=== PATIENT | female | born 1935 | race Caucasian/White ===

== ENCOUNTER 2017-07-26 03:38 | Inpatient (IN) | payer OTHER ==
--- NOTE | 2017-07-26 03:47 | CPEKG ---
Heart Rate: 58 RR Interval: 1034 P-R Interval: 160 QRSD Interval: 76 QT Interval: 436 QTC Interval: 429 P Isabella: 38 QRS Isabella: -15 T Wave Isabella: 98 EKG Severity - ABNORMAL ECG - EKG Impression: SINUS RHYTHM EKG Impression: ATRIAL PREMATURE COMPLEX EKG Impression: LEFT VENTRICULAR HYPERTROPHY EKG Impression: ANTERIOR Q WAVES, POSSIBLY DUE TO LVH Electronically Signed By: Jeffrey Hay 26-Jul-2017 05:58:17
--- NOTE | 2017-07-26 04:21 | EDPHY ---
H & P Stated Complaint: cp Time Seen by Provider: 07/26/17 03:38 HPI/ROS: Chief Complaint: Chest pain HPI: 82-year-old woman with a history of coronary artery disease. She woke this morning at 2:30 a.m. With substernal chest pain 7/10 with associated shortness of breath. She had a quadruple bypass in 2000. Last year she had a catheterization which showed a blockage of 1 of her bypass grafts. It was deemed non treatable at that time and she has continue medical management. She also has a history of metastatic breast cancer and has just decided to discontinue treatment. She or last chemotherapy was 3 weeks ago. She is visiting family from [place]. She says over the last several months she has been having episodes of shortness of breath the middle the night which go away when she sits up the side of the bed. She has never had pain associated with them. She did take 325 mg of aspirin at 10 o'clock tonight. She did take nitroglycerin this morning but feels that it may have been . On EMS arrival the patient was very uncomfortable appearing. They gave her an additional nitroglycerin. Her pain is now down to a 4/10. Is described as a tightness in her central chest with aching radiation of both her arms. Family did take her off the [facility] 2 days ago. She has been having worsening exertional dyspnea as well. No fevers or chills. Some mild cough. ROS: 10 point Review of Systems is negative except as noted in the HPI. PMH: Coronary artery disease status post coronary artery bypass graft x4, breast cancer, hyperlipidemia, hypertension, diabetes Social History: No smoking, no alcohol, no recreational drug use Family History: Coronary artery disease Physical Exam: Gen: Awake, Alert, uncomfortable appearing HEENT: Nose: no rhinorrhea Eyes: PERRLA, EOMI Mouth: Moist mucosa Neck: Supple, no JVD Chest: nontender, bibasilar rales Heart: S1, S2 normal, 2 in 6 murmur Abd: Soft, non-tender, no guarding Back: no CVA tenderness, no midline tenderness Ext: no edema, non-tender Skin: no rash Neuro: CN II-XII intact, Sensation grossly intact, Strength 5/5 in bilateral upper and lower extremities - Personal History Current Tetanus Diphtheria and Acellular Pertussis (TDAP): Yes - Medical/Surgical History Hx Asthma: No Hx Chronic Respiratory Disease: No Hx Diabetes: Yes Hx Cardiac Disease: Yes Hx Renal Disease: No Hx Cirrhosis: No Hx Alcoholism: No Hx HIV/AIDS: No Hx Splenectomy or Spleen Trauma: No - Social History Smoking Status: Never smoked Constitutional: Initial Vital Signs Temperature (C) 36.3 C 07/26/17 03:54 Heart Rate 63 07/26/17 03:54 Respiratory Rate 20 07/26/17 03:54 Blood Pressure 163/67 H 07/26/17 03:54 O2 Sat (%) 97 07/26/17 03:54 O2 Delivery Mode Nasal Cannula O2 (L/minute) 1 Allergies/Adverse Reactions: levofloxacin [From Levaquin] Allergy (Severe, Verified 07/26/17 03:52) clopidogrel [From Plavix] Allergy (Verified 07/26/17 03:59) diphenhydramine [From Benadryl] Allergy (Verified 07/26/17 03:58) morphine Allergy (Verified 07/26/17 03:53) Penicillins Allergy (Verified 07/26/17 03:59) Home Medications: Medication Instructions Recorded Adult Aspirin 07/26/17 Atenolol 07/26/17 Atorvastatin Calcium [Lipitor 10 07/26/17 mg (*)] Furosemide 07/26/17 Humalog 07/26/17 Isosorbide Dinitrate 10 mg (*) 07/26/17 Metformin 1000 mg 07/26/17 Omeprazole 07/26/17 Zestril 20 mg (*) 07/26/17 Medical Decision Making - Diagnostics EKG Interpretation: ECG time 3:45 a.m., sinus rhythm with a rate of 58, there is 1 mm elevations in AVR with 1 mm depressions in V5 and V6. Neuro is also depressions in leads 1 and 2. There are no prior ECGs available for comparison. ECG time 5:03 a.m., sinus rhythm, [address] elevations in AVR with ST depressions in V5 and V6 and lead 1, unchanged from prior. Imaging Results: Chest x-ray shows no acute disease per my interpretation. Imaging: I viewed and interpreted images myself ED Course/Re-evaluation: 82-year-old woman with known coronary disease presenting with substernal chest pain shortness of breath. ECG shows some mild ST elevations in AVR with depressions in feet 5 in V6. I have discussed with Dr. Artie Costa, cardiology. He has reviewed her ECG. 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 She could have some proximal LAD lesion. He is requesting patient be admitted medicine service. Will repeat an ECG and troponin 1 hr after the initial. If there is significant changes he would like to be contacted. I have discussed with Dr. Bautista, hospitalist. He will admit to the his service for further evaluation. Patient is still having some to have chest discomfort. She is refusing any narcotic pain medication at this time. 0530 repeat ECG is unchanged from prior, repeat troponin is 0.03. - Data Points Laboratory Results: Laboratory Results 07/26/17 03:30 07/26/17 07/26/17 03:50 03:30 Sodium 143 mEq/L mEq/L (135-145) Potassium 4.9 mEq/L mEq/L (3.3-5.0) Chloride 103 mEq/L mEq/L (97-110) Carbon Dioxide 25 mEq/l mEq/l (22-31) Anion Gap 15 mEq/L mEq/L (8-16) BUN 37 mg/dL H mg/dL (7-23) Creatinine 1.4 mg/dL H mg/dL (0.6-1.0) Estimated GFR 36 Glucose 206 mg/dL H mg/dL (70-100) Calcium 8.6 mg/dL mg/dL (8.5-10.4) Total Bilirubin 0.4 mg/dL mg/dL (0.1-1.4) AST 18 IU/L IU/L (14-46) ALT 27 IU/L IU/L (9-52) Alkaline Phosphatase 118 IU/L IU/L (38-126) POC Troponin I 0.02 ng/mL ng/mL (0.00-0.08) Total Protein 6.4 g/dL g/dL (6.3-8.2) Albumin 3.4 g/dL L g/dL (3.5-5.0) Point of Care Test Results: Chemistry 07/26/17 03:50 POC Troponin I 0.02 ng/mL ng/mL (0.00-0.08) Departure - Departure Disposition: [facility] Inpatient Acute Clinical Impression: Chest pain Condition: Fair
[2017-07-26] MEDS ORDERED: IBUPROFEN 200 MG TAB PO ONE (04:50)
[2017-07-26] MEDS ORDERED: ONDANSETRON DISINTEGRATING 4 MG TAB PO PRN (04:59)
[2017-07-26] MEDS ORDERED: ONDANSETRON 4 MG/2 ML VIAL IVP PRN (04:59)
--- NOTE | 2017-07-26 05:06 | CPEKG ---
Heart Rate: 71 RR Interval: 845 P-R Interval: 176 QRSD Interval: 80 QT Interval: 420 QTC Interval: 457 P [place]: 39 QRS [place]: -14 T Wave [place]: 92 EKG Severity - ABNORMAL ECG - EKG Impression: SINUS RHYTHM EKG Impression: LVH WITH SECONDARY REPOLARIZATION ABNORMALITY EKG Impression: ANTERIOR Q WAVES, POSSIBLY DUE TO LVH Electronically Signed By: Jeffrey Hay 26-Jul-2017 05:58:17
[2017-07-26] MEDS: ACETAMINOPHEN 325 MG TAB PO PRN ×2 (05:56→17:54)
--- NOTE | 2017-07-26 06:04 | PDGENHP ---
History and Physical - Chief Complaint Chest pain - History of Present Illness 82 yo F w/ hx of CAD and breast CA p/w chest pain. Patient woke up around 2 AM with severe, substernal chest pressure that radiated to her arms. This was associated with shortness of breath. She called EMS and was given NTG with little relief. In the ED her troponin has been negative. Her ECG does show some ischemic changes. Dr. Costa of cardiology was called who opted for conservative management. At the time of my evaluation patient is chest pain free and in NSR. Of note, she was [place] cardiac [place] and was told she had a blocked graft but this was not addressed due to goals of care. History Information - Allergies/Home Medication List Allergies/Adverse Reactions: levofloxacin [From Levaquin] Allergy (Severe, Verified 07/26/17 03:52) clopidogrel [From Plavix] Allergy (Verified 07/26/17 03:59) diphenhydramine [From Benadryl] Allergy (Verified 07/26/17 03:58) morphine Allergy (Verified 07/26/17 03:53) Penicillins Allergy (Verified 07/26/17 03:59) Home Medications: Adult Aspirin 07/26/17 [Last Taken Unknown] Atenolol 07/26/17 [Last Taken Unknown] Atorvastatin Calcium [Lipitor 10 mg (*)] 07/26/17 [Last Taken Unknown] Furosemide 07/26/17 [Last Taken Unknown] Humalog 07/26/17 [Last Taken Unknown] Isosorbide Dinitrate 10 mg (*) 07/26/17 [Last Taken Unknown] Metformin 1000 mg 07/26/17 [Last Taken Unknown] Omeprazole 07/26/17 [Last Taken Unknown] Zestril 20 mg (*) 07/26/17 [Last Taken Unknown] I have personally reviewed and updated: family history, medical history - Past Medical History coronary artery disease, cancer - Surgical History Reports: coronary bypass surgery - Family History Additional family history: Adult daughter healthy in the room - Social History Smoking Status: Never smoked Review of Systems Review of Systems: ROS: 10pt was reviewed & negative except for what was stated in HPI & below Physical Exam Physical Exam: Temp Pulse Resp BP Pulse Ox 36.3 C 67 18 140/81 H 97 07/26/17 03:54 07/26/17 04:58 07/26/17 04:58 07/26/17 04:58 07/26/17 04:58 Constitutional: no apparent distress, not in pain Eyes: PERRL, EOMI Ears, Nose, Mouth, Throat: moist mucous membranes, no oral mucosal ulcers Cardiovascular: regular rate and rhythym, systolic murmur Respiratory: no respiratory distress, clear to auscultation Gastrointestinal: normoactive bowel sounds, soft, non-tender abdomen Skin: warm, normal color, other (Port RU chest) Musculoskeletal: full muscle strength, no muscle tenderness Neurologic: AAOx3, CN II-XII Intact Psychiatric: interacting appropriately, not anxious Lab Data & Imaging Review 07/26/17 03:30 Sodium 143 mEq/L (135-145) 07/26/17 03:30 Potassium 4.9 mEq/L (3.3-5.0) 07/26/17 03:30 Chloride 103 mEq/L (97-110) 07/26/17 03:30 Carbon Dioxide 25 mEq/l (22-31) 07/26/17 03:30 Anion Gap 15 mEq/L (8-16) 07/26/17 03:30 BUN 37 mg/dL (7-23) H 07/26/17 03:30 Creatinine 1.4 mg/dL (0.6-1.0) H 07/26/17 03:30 Estimated GFR 36 07/26/17 03:30 Glucose 206 mg/dL (70-100) H 07/26/17 03:30 Calcium 8.6 mg/dL (8.5-10.4) 07/26/17 03:30 Total Bilirubin 0.4 mg/dL (0.1-1.4) 07/26/17 03:30 AST 18 IU/L (14-46) 07/26/17 03:30 ALT 27 IU/L (9-52) 07/26/17 03:30 Alkaline Phosphatase 118 IU/L (38-126) 07/26/17 03:30 POC Troponin I 0.03 ng/mL (0.00-0.08) 07/26/17 05:17 Total Protein 6.4 g/dL (6.3-8.2) 07/26/17 03:30 Albumin 3.4 g/dL (3.5-5.0) L 07/26/17 03:30 Visualized and Interpreted Chest x-ray results: Yes Chest X-Ray results: no infiltrate, other (Port in place, sternotomy wires noted ) Visualized and Interpreted EKG results: Yes EKG Interpretation: Positive for: normal sinsus rhythm, ST elevation (AVR, V1), ST depression (V4-V6) Assessment & Plan Assessment: 82 yo F w/ CAD and breast CA p/w chest pain. Plan: 1. Chest pain - Concerning story noting severe substernal chest pain with radiation to bilateral arms. ECG notable for 1 mm LINDA's in AVR and V1. Troponin negative thus far. - Admit to PCU for observation - Monitor on telemetry, trend cardiac enzymes (next at 1100) - Cardiology notified, will see patient today - Discussed goals of care with patient, she is unsure if she would want intervention and would like to know the results of the work-up and the risk she is in prior to making a decision about invasive measures 2. CAD - S/p CABG in 2000. Per patient and daughter she was told that she had a blocked graft during a cath last year that was not intervened upon. - Acute work-up as above - Continue ASA, statin 3. Breast CA - Patient recently made the decision to stop chemotherapy. Diet - NPO Code - Full Ppx - SQH Dispo - Admit under observation status
[2017-07-26] MEDS: HEPARIN 5,000 UNIT/0.5 ML INJ SC SCH ×2 (08:25→16:51)
[2017-07-26 10:33] LABS: PLATELET COUNT 231 10^3/uL (150-400)
[2017-07-26] MEDS ORDERED: ISOSORBIDE MONONITRATE 30 MG TAB.SR PO SCH (10:45)
[2017-07-26 10:46] LABS: INR 0.99 (0.83-1.16); PROTIME(PATIENT) 13.3 SEC (12.0-15.0)
--- NOTE | 2017-07-26 12:09 | GCON ---
[f rep st] CONSULTATION CARDIOLOGY CONSULTATION. REFERRING PHYSICIAN: Nick Mckeon MD INDICATION FOR CARDIOLOGY CONSULTATION: Known history of CAD, chest pressure, abnormal electrocardiogram. HISTORY OF PRESENT ILLNESS: The patient is an 82-year-old female with significant past history that includes CAD with previous CABG in 2000, hypertension, hyperlipidemia, history of left-sided breast cancer who has recently stopped chemotherapy, insulin-dependent diabetes. She is here in [place] on vacation with her family. She reports last evening, around 2:00 a.m. , waking up with significant shortness of breath. Once sitting up, she developed a full anterior chest pressure, rating it 5/10 with intense pain. She did report some mild diaphoresis and had nausea with symptoms. Her daughter did give her 2 sublingual nitroglycerin and called 911. Patient reports no relief with symptoms. Once EMS arrived, repeated dosage of sublingual nitroglycerin was given. Her initial electrocardiogram showed sinus arrhythmia, leftward axis, noted sub millimeter ST elevation in V1, Q-waves in V1 and V2, with nonspecific T-wave abnormalities in lateral leads. In the emergency department, her chest pressure went away. Initial troponin level drawn was 0.02. She was admitted to the PCU for further evaluation. She informs me since being on the PCU, her shortness of breath has improved, but she did notice a mild episode of midsternal similar pressure while getting up and going to the bathroom, which dissipated within a few minutes of rest. She does inform me over the last 2 months, she has been noticing more dyspnea on exertion, but has had no chest pressure. She does report on average for the last 2 months of usually waking up with PND at least 3 times a week. She reports no recent fevers chills or night sweats. With her history of breast cancer, she reports her last dose of chemotherapy was 3 weeks ago. She has also been noted to have an abnormal stress test last May, in which she did undergo coronary angiogram in [place] by her primary endocrinology teacher, Dr. Dickerson , in which it was noted that she had a normal LV systolic function , her left main had a 90% lesion, her circumflex was occluded, her RCA was occluded. She had a PEARSON to the LAD that was open. She had an SVG to diagonal and skip graft to OM which was open but her SVG to her RCA was occluded. It was, at that time , decided to treat her with medical therapy. She has significant cardiac risk factors that include age, hypertension, hyperlipidemia, family history of coronary artery disease, reporting mother of CAD, and diabetes. PAST MEDICAL HISTORY: Includes breast cancer, history of colon cancer, diabetes , CAD, hypertension, hyperlipidemia. PAST SURGICAL HISTORY: Includes CABG in 2000, appendectomy, left mastectomy, removal of gallbladder, total hysterectomy. SOCIAL HISTORY: She has been for 61 years. She has 4 adult daughters whom she reports are alive and well, but do have history of either hypertension and diabetes. She denies of any history of smoking, reports no alcohol use, denies any illicit drug use. ALLERGIES: Reported allergies of clopidogrel, Benadryl, Levaquin, morphine and penicillin. HOME MEDICATIONS: Include Humalog Mix 75/25, 20 units subQ daily, vitamin C 00 mg p.o. daily, Lasix 20 mg p.o. daily, vitamin D2 5000 units p.o. every Monday, Lipitor 80 mg p.o. h.s., atenolol 25 mg p.o. daily, aspirin 325 mg p.o. h.s., metformin a 1000 mg p.o. b.i.d., omeprazole 20 mg p.o. h.s. isosorbide 30 mg p.o. daily, lisinopril 20 mg p.o. h.s. REVIEW OF SYSTEMS: A 10-point review of systems done on this patient all negative except as mentioned above. PHYSICAL EXAMINATION: GENERAL APPEARANCE: Elderly female, mildly obese, , appears to be in no acute distress. Alert and oriented to person, place, time, situation. VITAL SIGNS: Blood pressure of 175/83, heart rate 75 sinus rhythm on the monitor, respirations are 17, saturating 93% on room air, temperature of 36.3 degrees Celsius. HEENT: Head is normocephalic. Lips and tongue are pink and moist with no signs of cyanosis. Conjunctivae pink. NECK: Trachea is midline. +2 carotid pulses bilateral, no auscultated bruits, jugular vein elevation of 5-6 cm above sternal notch at a 45-degree angle. LUNGS: Mild rales noted in bases bilateral, no rhonchi or wheezing noted. No accessory muscle use, no intercostal muscle retraction noted. CARDIAC: Regular rate, regular rhythm, S1, S2, 2/6 systolic murmur noted along left sternal border. No rubs noted. ABDOMEN: Soft, nontender, bowel sounds x4 quadrants, no organomegaly, no palpable masses. SKIN: [place], warm, dry, no cyanosis, +1 to 2 peripheral edema bilateral lower extremities. VASCULAR: +2 carotids bilateral, +2 radials bilateral, +1 dorsal pedal and posterior tibial pulses bilateral. LABORATORIES: Laboratory studies drawn on admission showed sodium of 143, potassium 4.9, chloride 103, CO2 25, BUN 37, creatinine 1.4, glucose 206 calcium 8.6, total bilirubin 0.4, AST 18, ALT 27, alkaline phosphate 118, initial troponin of 0.02. Total protein 6.4, albumin 3.4. This morning, WBC was 12.4, hemoglobin of 11.6, hematocrit 36.1, platelet count 231. INR of 0.99 , currently pending is 3rd troponin level and BNP. STUDIES: Electrocardiogram as mentioned above. Chest x-ray, showing cardiomegaly with no acute cardiopulmonary process. ASSESSMENT AND PLAN: 1. Chest pressure: The patient reporting new onset of chest pressure this morning, waking her up from sleep with associated symptoms of shortness of breath, nausea and diaphoresis. She has had 2 negative troponins so far. She is noted to have history of coronary artery disease with previous bypass surgery , last catheterization was done May 2016, by her primary endocrinology teacher. At that time, she was noted that saphenous vein graft to right coronary artery was 100% occluded with the thoughts of treatment for medical therapy. She reports ongoing paroxysmal nocturnal dyspnea for the last 2 months. She is currently pain-free, but did report earlier this morning after arrival to the hospital exertional chest pain when getting up to the bathroom which resolved within a few minutes. At this time, I am concerned with her multiple cardiac risk factors, significant cardiac history, and ongoing symptoms that potentially is experiencing acute coronary syndrome. We will repeat troponin level now. She has had an aspirin therapy in the ER this morning. I will resume her home dose of beta-lilia. I would like her to get an echocardiogram to evaluate her LV systolic function, and I have discussed with the patient and daughter about consideration repeat angiogram. 2. Coronary artery disease: Patient with known history of coronary artery disease. She is currently on anti-platelet therapy of aspirin, had resumed her home doses of atenolol and isosorbide. She is on secondary prevention with atorvastatin. 3. Dyspnea on exertion: Patient reporting ongoing dyspnea on exertion for the last few months. Chest x-ray showing no acute cardiopulmonary process, does note elevated jugular venous distention and mild rales on physical examination. Will have ordered a BMP to be done. The patient is currently off her diuretic dose. I would like to hold off until we have decided on if she will go for angiogram due to her elevated creatinine. Echocardiogram as above. 4. Hypertension: Patient's blood pressure is elevated today, I have resumed her home dosage of atenolol, isosorbide, and lisinopril. Will re-evaluate once she has received her morning medications and determine if any further needs. 5. Hyperlipidemia: Patient with history hyperlipidemia. She has been resumed on her home dose of atorvastatin. 6. Diabetes: Patient with history of type 1 diabetes. She is being followed by the hospitalist services for medication control. 7. Breast cancer: The patient reports history of metastatic breast cancer with previous mastectomy to the left. She reports most recent chemotherapy was 3 weeks ago. Echocardiogram to evaluate left ventricular function due to history of recent history of chemotherapy. Thank you for this consultation. We will be glad to follow along with you. /[id number]/MODL MTDD
[2017-07-26] MEDS: ATENOLOL 25 MG TAB PO SCH (12:17)
[2017-07-26] MEDS ORDERED: NITROGLYCERIN 0.4 MG BTL SL PRN (12:19)
[2017-07-26] MEDS ORDERED: ASPIRIN EC 325 MG TAB PO ONE ×2 (12:19→14:32)
[2017-07-26] MEDS ORDERED: FAMOTIDINE 20 MG TAB PO ONE (12:19)
[2017-07-26] MEDS ORDERED: DIAZEPAM 5 MG TAB PO ONE (12:19)
[2017-07-26] MEDS ORDERED: TEMAZEPAM 15 MG CAP PO PRN (12:19)
[2017-07-26] MEDS ORDERED: NS 1,000 ML IV SCH (12:30)
--- NOTE | 2017-07-26 12:48 | ECHO ---
[email or web address] [address] [address] Main: [phone] Fax: Transthoracic Echocardiogram Name: MARY EARLY MR#: [id number] Study Date: 07/26/2017 Study Time: 10:20 AM Date of : 1935 Age: 82 year(s) Height: 157.5 cm (62 in.) Weight: 78.02 kg (172 lb.) BSA: 1.79 m2 Gender: Female Examination: Echo Indication: cp, Coronary artery disease, Shortness of breath Image Quality: Adequate Contrast: Requested by: Bharat Fitch BP: 140 mmHg/81 mmHg Heart Rate: Rhythm: Indication: cp, Coronary artery disease, Shortness of breath Procedure Staff French Folder: Tammy Courtney RDCS Reading Physician: Alonzo Childress MD Requesting Provider: Conclusions: Normal global systolic LV function. EF is 64 %. Mild to moderate mitral regurgitation. Mild aortic valve regurgitation is present. Mild tricuspid regurgitation is present. Right ventricular systolic pressure measures 32mmHg. Measurements: Chambers Valvular Assessment AV/MV Valvular Assessment TV/PV Normal Normal Normal Name Value Range Name Value Range Name Value Range Ao Kaleigh (2D): 3.1 cm (1.4 cm-2.6 AV Vmax: 1.10 m/s (1 m/s-1.7 TR Vmax: 2.59 mm/s ( - ) cm) m/s) TR PGmax: 27 mmHg ( - ) IVSd (2D): 1.2 cm (0.6 cm-1.1 AV meanP mmHg ( - ) syst. PAP: 32 mmHg ( - ) cm) BO (VTI): 2.3 cm ( - ) PV Vmax: 0.94 m/s (0.6 m/s-0.9 LVDd (2D): 3.8 cm (3.9 cm-5.3 MV E Vmax: 0.88 m/s ( - ) m/s) cm) MV A Vmax: 1.31 m/s ( - ) PV PGmax: 4 mmHg ( - ) LVDs (2D): 2.5 cm (2.1 cm-4 MV E/A: 0.67 ( - ) cm) MV meanP mmHg ( - ) LVPWd (2D): 1.2 cm ( - ) MV PHT: 0.131 s ( - ) LVOTd 2.1 cm 2.1 cm mm MVA (Vmax): 1.2 m/s ( - ) LVEF (BP): 64 % (>=55 %) MVA (PHT): 1.7 s ( - ) RVDd(2D): 2.7 cm (1.9 cm-3.8 cmmm) Continued Measurements: Chambers Valvular Assessment AV/MV Valvular Assessment TV/PV Name Value Name Value Name Value Patient: MARY EARLY Study Date: 07/26/2017 Page 1 of 2 10:20 AM LADs: 3.6 cm MV DecTime: 419 m/s CVP (est.): 5 mmHg LADs Lon.0 cm MV E' Septal: 0.04 m/s LA Area: 18.9 cm2 MV E/E' Septal: 23.80 LA Volume: 53 ml MV E/E' Lateral: 17.30 LA Volume Index: 29.6 ml/m2 MV VTI: 49.10 cm RA Area: 13.0 cm2 Additional Vessels Name Value Ao Ascendin.1 cm Findings: Left Ventricle: Normal size left ventricle. No LV hypertrophy. Normal global systolic LV function. EF is 64 %. No regional wall motion abnormality. Diastolic dysfunction is present. . Right Ventricle: Normal size right ventricle. Normal RV function. Left Atrium: The left atrium is normal in size. Right Atrium: The right atrium is normal in size. Mitral Valve: The mitral valve is normal in appearance and function. No mitral stenosis is present. Mild to moderate mitral regurgitation. Mitral valve leaflet calcification is noted. Aortic Valve: The aortic valve is tri-leaflet. Mild aortic valve regurgitation is present. No aortic valve stenosis is present. Tricuspid Valve: The tricuspid valve is normal in appearance and function. Mild tricuspid regurgitation is present. The pulmonary artery pressure is normal. Right ventricular systolic pressure measures 32mmHg. Pulmonic Valve: The pulmonic valve is normal in appearance and function. There is no pulmonic regurgitation seen. Aorta: The aorta is normal. Normal size aortic root measuring 3.1 cm. Normal size ascending aorta measuring 3.1 cm. Pericardium: No pericardial effusion. (No Signature Object) Patient: MARY EARLY Study Date: 07/26/2017 Page 2 of 2 10:20 AM [id number]
[2017-07-26] MEDS ORDERED: LIDOCAINE 1% 300 MG/30 ML SDV ONE (13:39)
[2017-07-26] MEDS ORDERED: IOPAMIDOL (ISOVUE-370) 150 ML BTL IV ONE (13:40)
[2017-07-26] MEDS ORDERED: fentaNYL 100 MCG/2 ML INJ ONE (13:40)
[2017-07-26] MEDS ORDERED: MIDAZOLAM 2 MG/2 ML VIAL ONE (13:40)
[2017-07-26] MEDS ORDERED: diphenhydrAMINE 25 MG CAP PO ONE (14:31)
[2017-07-26] MEDS ORDERED: FAMOTIDINE 20 MG TAB ONE (14:32)
[2017-07-26] MEDS ORDERED: DIAZEPAM 5 MG TAB ONE (14:32)
[2017-07-26] MEDS ORDERED: TICAGRELOR 90 MG TAB ONE (14:51)
--- NOTE | 2017-07-26 14:51 | PDHPUP ---
History & Physical Update H&P update statement: This history and physical update is based on an assessment of the patient which was completed after admission or registration (within 24 hours), but prior to the surgery/procedure. H&P update: H&P reviewed & patient examined, no change in patient's condition since H&P completed
--- NOTE | 2017-07-26 14:51 | PDPROPOC ---
Sedation Plan of Care Sedation Plan of Care: mental status noted, patient educated of risks, benefits , alternatives, patient can tolerate sedation ASA Classification: ASA 2 Planned drugs: fentanyl, midazolam Mallampati Score: Class 2 Mallampati Reference Image: Patient passed 3-3-2 rule?: Yes
[2017-07-26] MEDS ORDERED: TICAGRELOR 90 MG TAB PO ONE (15:00)
[2017-07-26] MEDS ORDERED: hydrALAZINE 20 MG/ML VIAL ONE (15:15)
[2017-07-26] MEDS ORDERED: FUROSEMIDE 40 MG/4 ML VIAL IVP ONE (15:56)
--- NOTE | 2017-07-26 16:40 | ASMTCMCOM ---
CM Note CM Note Notes: 07/26/2017 Case Management Note Discussed pt during rounds this morning. Her daughter was present. Pt admitted for chest pain with a h/o previous heart caths with stents. There are no therapy evals ordered at this time. Case Management d/c poc: to be determined. Case Management to follow. Date Signed: 07/26/2017 04:39 PM Electronically Signed By:Becca Williamson RN
--- NOTE | 2017-07-26 19:11 | CPIP ---
[f rep st] INVASIVE CARDIAC PROCEDURE DATE OF PROCEDURE: 07/26/2017 INDICATIONS FOR PROCEDURE: Lqs-RD-jepcixe elevation myocardial infarction. PROCEDURE: 1. Nonselective right groin sheathogram. 2. Bilateral selective coronary angiography. 3. catheterization. 4. Left angiogram. 5. Saphenous vein angiography jump graft to obtuse marginal artery and diagonal artery. 6. Left internal mammary artery angiography to the left anterior descending. 7. Saphenous vein angiography presumably to right coronary artery which was occluded. This is an 82-year-old female with a history of prior bypass surgery. The patient had come in with c hest pain early this morning and was found to have elevated troponins. Given these findings, patient consented for a left heart catheterization. DESCRIPTION OF PROCEDURE: After informed consent, the patient was brought to [facility]. The right groin w as prepped and draped in usual sterile fashion. Using lidocaine, a short 6-[place] sheath, right femo ral artery verified angiographically with the 6-[place] sheath. The JR4 catheter was advanced to the left coronary artery. The left coronary artery revealed a normal ostial left main. However, in the proximal left main, there was 70% disease. The circumflex was 100% occluded. The LAD itself gave of f a septal labor supervisor in its midportion. Distally had diffuse thin 60% to 70% disease. Of note, the re was competitive filling of the LAD via graft and some collateralization of the distal RPDA coming off this vessel. After these images were obtained, the JL4 catheter was removed. A JR4 catheter was advanced to the right coronary artery which revealed subtotally occluded 100% proximal RCA with some faint reconstitution distally of the vessel from right to right collaterals. After these images were obtained, the JR4 catheter was pulled back into the 1st graft, which was pres umably graft to the RCA. This was 100% occluded. This was then pulled back into the 2nd graft, whic h was a jump graft to the high diagonal artery to a marginal 1 artery. The graft itself appeared to be widely patent. The marginal artery appeared to be widely patent distally. The diagonal artery wa s a smaller vessel which appeared to have a focal 40% to 50% area of narrowing in its mid distal aspe ct, but no high-grade stenosis. After imaging had been obtained, the JR4 catheter was placed in the left subclavian artery, switched out for a PEARSON catheter. Angiography of the left internal mammary a rtery showed widely patent PEARSON anastomosing to an LAD. Distal LAD was widely patent. After these i mages were obtained, the left internal mammary artery catheter was removed. A pigtail catheter was a dvanced to the left ventricle. EDP was 15 mmHg. pressure showed EF of 65% with no large wall motion abnormality. Pigtail catheter was removed with no pullback gradient. The pigtail cathet er was removed . The right groin was closed with a 6-[place] Angio-Seal. The patient ector ated the procedure well with no complications. IMPRESSION: 1. Severe [place] coronary artery disease. 2. Patent left internal mammary artery to LAD and patent saphenous vein graft jump graft to obtuse m arginal 1 and high diagonal artery. 3. 100% occluded right coronary artery with what presumably is an occluded saphenous vein graft to t he right coronary artery. 4. Normal ejection fraction. PLAN: The patient has stable coronary artery disease compared to her last catheterization with the s frankie patent grafts as before. Will continue with aggressive medical therapy. No need for any interve ntion at this point. /[id number]/MODL
[2017-07-26] MEDS: PANTOPRAZOLE SODIUM 40 MG TAB PO SCH (20:37)
[2017-07-26] MEDS: LISINOPRIL 20 MG TAB PO SCH (20:37)
[2017-07-26] MEDS: ATORVASTATIN CALCIUM 40 MG TAB PO SCH (20:37)
[2017-07-26] MEDS: INSULIN LISPRO PROTAMIN SQ SCH (21:05)
[2017-07-26] MEDS: LISPRO SQ SCH (21:05)
[2017-07-27] MEDS: ASPIRIN 325 MG TAB PO SCH ×2 (02:20→20:12)
--- NOTE | 2017-07-27 08:08 | PDCARPN ---
Cardiology Progress Note Chief Complaint: CP Assessment/Plan: Assessment: CP NSTEMI CABG HTN Plan: 07/27/17 08:05 Pt feels better today and wants to go home Certainly altitude has some effect on symptoms will increase imdur and hydralazine for better BP control CRI and bradycardia will limit ACEi and BB titration Check LE venous U/S to r/o DVT as alternate source of symptoms Subjective: feels better Reviewed/Discussed With: multidisciplinary team Time Spent with Patient: greater than 25 minutes Time Spent with Patient: Greater than 25 minutes spent on this patients care, greater than 50% of time spent counseling, educating, and coordinating care regarding the above mentioned plan. Objective: Vital Signs (8 Hrs) Temp Pulse Resp BP Pulse Ox 07/27/17 03:38 36.5 C 62 19 177/79 H 98 Intake/Output (24 Hrs) 07/26/17 07/27/17 07/28/17 05:59 05:59 05:59 Intake Total 50 100 Output Total 300 Balance 50 -200 Intake: Oral (ml) 50 100 IV Intake (ml) 0 IV Infused (ml) 0 Output: Urine (ml) 300 Toilet 300 Other: Weight 75.7 kg Number of Voids 1 Bedpan 4 Toilet 1 Result Diagrams: 07/26/17 10:18 07/27/17 04:30 Cardiac Labs: Cardiac Lab Results (72 Hrs) 07/26/17 10:18 Troponin I 0.182 H - Physical Exam Constitutional: healthy appearing Eyes: PERRL Ears, Nose, Mouth, Throat: moist mucous membranes Cardiovascular: regular rate and rhythm Peripheral Pulses: 1+: femoral (R), femoral (L) Respiratory: clear to auscultate bilat Gastrointestinal: normoactive bowel sounds Genitourinary: no suprapubic tenderness Skin: no rashes Musculoskeletal: no muscular tenderness Neurologic: AAOx3 Psychiatric: cooperative ICD10 Worksheet Patient Problems: Problems Problem Status Onset Chest pain Acute
[2017-07-27] MEDS: LISPRO SQ SCH ×2 (08:14→18:39)
[2017-07-27] MEDS: INSULIN LISPRO PROTAMIN SQ SCH ×2 (08:14→18:39)
[2017-07-27] MEDS ORDERED: NIFEdipine ER 60 MG TAB PO SCH (09:00)
[2017-07-27] MEDS: ISOSORBIDE MONONITRATE 30 MG TAB.SR PO SCH (09:01)
[2017-07-27] MEDS: ATENOLOL 25 MG TAB PO SCH (09:02)
[2017-07-27] MEDS: FUROSEMIDE 20 MG TAB PO SCH (09:03)
[2017-07-27] MEDS: ASCORBIC ACID 500 MG TAB PO SCH (09:03)
[2017-07-27] MEDS: NIFEdipine ER 30 MG TAB PO SCH (09:56)
--- NOTE | 2017-07-27 15:02 | HOSPPROG ---
Hospitalist Progress Note Assessment/Plan: 82 yo F w cad here NSTEMI NSTEMI: cath w no acute stenosis continue bb/asa/nitrate malaise: new this pm, following hydral, nifedipine- feels " cold" hold hydral this PM not hypotensive breast CA: chemo as outpt AHRF: improved w diuresis dispo: inpt Subjective: case d/w dr thompson Objective: Vital Signs Temp Pulse Resp BP Pulse Ox 36.2 C 60 18 132/56 H 94 07/27/17 13:00 07/27/17 13:00 07/27/17 13:00 07/27/17 13:00 07/27/17 13:00 Laboratory Results 07/26/17 10:18 07/27/17 04:30 07/26/17 07/27/17 07/28/17 05:59 05:59 05:59 Intake Total 50 100 Output Total 300 Balance 50 -200 PT 13.3 SEC (12.0-15.0) 07/26/17 10:18 INR 0.99 (0.83-1.16) 07/26/17 10:18 - Physical Exam Constitutional: no apparent distress, appears nourished Eyes: PERRL, anicteric sclera Ears, Nose, Mouth, Throat: moist mucous membranes, hearing normal Cardiovascular: regular rate and rhythym, no murmur, rub, or gallop Respiratory: no respiratory distress, no rales or rhonchi Gastrointestinal: normoactive bowel sounds, soft, non-tender abdomen Genitourinary: No sim in urethra Skin: warm, normal color Musculoskeletal: full muscle strength Neurologic: AAOx3 ICD10 Worksheet Patient Problems: Problems Problem Status Onset Chest pain Acute
[2017-07-27] MEDS: LISINOPRIL 20 MG TAB PO SCH (20:12)
[2017-07-27] MEDS: ATORVASTATIN CALCIUM 40 MG TAB PO SCH (20:12)
[2017-07-27] MEDS: PANTOPRAZOLE SODIUM 40 MG TAB PO SCH (20:12)
--- NOTE | 2017-07-28 06:50 | PDMN ---
Medical Necessity Medical necessity: M230 CA- 2 days pt with hx of CABG with CP and elevated troponins
--- NOTE | 2017-07-28 06:54 | PDCARPN ---
Cardiology Progress Note Chief Complaint: CP Assessment/Plan: Assessment: CP NSTEMI CABG HTN Plan: 07/27/17 08:05 Pt feels better today and wants to go home Certainly altitude has some effect on symptoms will increase imdur and hydralazine for better BP control CRI and bradycardia will limit ACEi and BB titration Check LE venous U/S to r/o DVT as alternate source of symptoms 07/28/17 06:53 doing better BP much better controlled will reduce hydralazine to 25 mg po bid, continue other meds OK from CV perspective to d/c home today Subjective: feels better Reviewed/Discussed With: multidisciplinary team Time Spent with Patient: greater than 25 minutes Time Spent with Patient: Greater than 25 minutes spent on this patients care, greater than 50% of time spent counseling, educating, and coordinating care regarding the above mentioned plan. Objective: Vital Signs (8 Hrs) Temp Pulse Resp BP Pulse Ox 07/28/17 04:00 36.4 C 73 16 130/63 H 96 07/27/17 23:24 36.6 C 56 L 16 124/50 H 99 Intake/Output (24 Hrs) 07/27/17 07/28/17 07/29/17 05:59 05:59 05:59 Intake Total 100 550 Output Total 300 350 Balance -200 200 Intake: Oral (ml) 100 550 IV Intake (ml) 0 Output: Urine (ml) 300 350 Toilet 300 350 Other: Weight 75.7 kg Number of Voids Bedpan 4 Toilet 1 Number of Stools Toilet 1 Result Diagrams: 07/26/17 10:18 07/27/17 04:30 Cardiac Labs: Cardiac Lab Results (72 Hrs) 07/26/17 10:18 Troponin I 0.182 H - Physical Exam Constitutional: healthy appearing Eyes: PERRL Ears, Nose, Mouth, Throat: moist mucous membranes Cardiovascular: regular rate and rhythm Peripheral Pulses: 1+: femoral (R), femoral (L) Respiratory: clear to auscultate bilat Gastrointestinal: normoactive bowel sounds Genitourinary: no suprapubic tenderness Skin: no rashes Musculoskeletal: no muscular tenderness Neurologic: AAOx3 ICD10 Worksheet Patient Problems: Problems Problem Status Onset Chest pain Acute
[2017-07-28] MEDS: ATENOLOL 25 MG TAB PO SCH (09:15)
[2017-07-28] MEDS: hydrALAZINE 25 MG TAB PO SCH ×2 (09:15→10:36)
[2017-07-28] MEDS: ASCORBIC ACID 500 MG TAB PO SCH (09:16)
[2017-07-28] MEDS: ISOSORBIDE MONONITRATE 30 MG TAB.SR PO SCH ×2 (09:16→10:35)
[2017-07-28] MEDS: FUROSEMIDE 20 MG TAB PO SCH (09:16)
[2017-07-28] MEDS: NIFEdipine ER 30 MG TAB PO SCH ×2 (09:17→10:36)
[2017-07-28] MEDS: LISPRO SQ SCH (09:28)
[2017-07-28] MEDS: INSULIN LISPRO PROTAMIN SQ SCH (09:28)
--- NOTE | 2017-07-28 10:23 | HOSPPROG ---
Hospitalist Progress Note Assessment/Plan: 82 yo F w cad here NSTEMI NSTEMI: cath w no acute stenosis continue bb/asa/nitrate malaise: feels better tolerating meds breast CA: chemo as outpt AHRF: improved w diuresis dispo: home today > 30 minutes Subjective: feels well. apprehensive about new medications Objective: Vital Signs Temp Pulse Resp BP Pulse Ox 36.5 C 86 16 111/75 90 L 07/28/17 07:49 07/28/17 07:49 07/28/17 07:49 07/28/17 07:49 07/28/17 07:49 07/27/17 07/28/17 07/29/17 05:59 05:59 05:59 Intake Total 550 Output Total 350 Balance 200 PT 13.3 SEC (12.0-15.0) 07/26/17 10:18 INR 0.99 (0.83-1.16) 07/26/17 10:18 - Physical Exam Constitutional: no apparent distress, appears nourished Eyes: PERRL, EOMI Ears, Nose, Mouth, Throat: moist mucous membranes, hearing normal Cardiovascular: regular rate and rhythym, no murmur, rub, or gallop Respiratory: no respiratory distress, no rales or rhonchi Gastrointestinal: normoactive bowel sounds, soft, non-tender abdomen Genitourinary: no bladder fullness, No sim in urethra Skin: warm, normal color Musculoskeletal: full muscle strength, no muscle tenderness Neurologic: AAOx3 ICD10 Worksheet Patient Problems: Problems Problem Status Onset Chest pain Acute
--- NOTE | 2017-07-28 11:01 | GDS ---
[f rep st] DISCHARGE SUMMARY DISCHARGE DIAGNOSES: 1. Non-ST elevation myocardial infarction, felt secondary to demand. 2. History of coronary disease with bypass. 3. History of breast cancer, getting chemotherapy. 4. Poorly-controlled hypertension, at least in [place]. 5. Chronic kidney disease. 6. Diabetes. HOSPITAL COURSE: Please see admission history and physical by Dr. Huber Bautista. The patient presented early in the morning on the with severe substernal chest pressure radiating to her arm s with shortness of breath. She had initially negative troponins that peaked at 0.18, with 0.03 bein g the upper limit of normal. She underwent angiogram with Cardiology, which revealed severe [place] c oronary disease, patent PEARSON to LAD, and patent saphenous vein to obtuse marginal and diagonal with 1 00% occluded RCA with an occluded saphenous vein to the right coronary artery. This was felt to be c onsistent with her prior cath results. Her troponin trended down. The patient's symptoms improved. She was noted to be hypertensive. She was initiated on increased Imdur, nifedipine, and hydralazine . She was somewhat anxious about all these new medications. She was symptomatic with blood pressure s of say 110/75. Nifedipine was discontinued, we backed off on the hydralazine, and continued to inc rease Imdur. Notably, she is also on atenolol and lisinopril. She is discharged home with new prescriptions with plans to travel back to [place] today following _ . /[id number]/MODL
--- NOTE | 2017-07-28 11:35 | ASMTLACE ---
LACE Length of stay for Answers: 2 days current admission Acuity / Level of Answers: Yes Care: Did the patient have an inpatient admission? Comorbidities - select Answers: Coronary Artery Disease all that apply Diabetes (uncontrolled or controlled) Other Notes: Metastatic breast cancer; HTN # of Emergency department Answers: 1-2 visits in the last 6 months Score: 10 Date Signed: 07/28/2017 11:34 AM Electronically Signed By:NICOLE King
[2017-07-28 12:47] VITALS: BP 128/66
[2017-07-30] MEDS ORDERED: ERGOCALCIFEROL 50,000 I.UNIT CAP PO SCH (09:00)
== END 2017-07-28 12:50 | disposition home or self-care (01) | DRG 281 ==
LOC: F2W 06:20 → OBSVTOIN 07-27 17:24
PROVIDERS: ADMIT Student in an Organized Health Care Education/Training Program; ATTEND Student in an Organized Health Care Education/Training Program
PROC: B2151ZZ Fluoroscopy of Left Heart using Low Osmolar Contrast (ICD-10-PCS; principal; 2017-07-26)
PROC: B2131ZZ Fluoroscopy of Multiple Coronary Artery Bypass Grafts using Low Osmolar Contrast (ICD-10-PCS; principal; 2017-07-26)
PROC: B2111ZZ Fluoroscopy of Multiple Coronary Arteries using Low Osmolar Contrast (ICD-10-PCS; principal; 2017-07-26)
DX: I21.4 Non-ST elevation (NSTEMI) myocardial infarction (principal); T82.858A Stenosis of other vascular prosthetic devices, implants and grafts, initial encounter; C50.919 Malignant neoplasm of unspecified site of unspecified female breast; I10 Essential (primary) hypertension; E11.9 Type 2 diabetes mellitus without complications; I25.10 Atherosclerotic heart disease of native coronary artery without angina pectoris; E78.5 Hyperlipidemia, unspecified; Z85.038 Personal history of other malignant neoplasm of large intestine; Z90.12 Acquired absence of left breast and nipple; Z90.710 Acquired absence of both cervix and uterus; Z95.1 Presence of aortocoronary bypass graft
CPT/HCPCS: 84484-PO; C1760; G0378; J0360; J1642; J1644; J1940; J2250; J2405; J3010; Q9967